=== PATIENT | female | born 1980 | race Caucasian/White ===

== ENCOUNTER 2019-01-13 11:24 | Inpatient (IN) ==
[2019-01-13] MEDS ORDERED: FENTANYL ONE (11:46)
[2019-01-13] MEDS ORDERED: DIPRIVAN 1% ONE (11:46)
[2019-01-13] MEDS ORDERED: VERSED ONE (11:48)
[2019-01-13] MEDS ORDERED: LR 1,000 ML ONE ×3 (11:51→13:17)
[2019-01-13] MEDS ORDERED: QUELICIN (DOSE) ONE (11:51)
[2019-01-13] MEDS ORDERED: SODIUM CHLORIDE 0.9% ONE (11:51)
[2019-01-13] MEDS ORDERED: SENSORCAINE 0.5%-EPI 1:200,000 ONE (11:51)
[2019-01-13] MEDS ORDERED: CLINDAMYCIN 900 MG/D5W 900 MG/50 ML IVPB ONE (12:04)
[2019-01-13] MEDS ORDERED: PEPCID ONE ×2 (12:04→12:29)
[2019-01-13] MEDS ORDERED: REGLAN ONE (12:04)
--- NOTE | 2019-01-13 12:37 | EKG Report ---
Test Performed on : 01/13/2019 12:28:55 PM Test Reason : tachycardia/preopt surgery Blood Pressure : / mmHG Vent. Rate : 169 BPM Atrial Rate : 163 BPM P-R Int : 000 ms QRS Dur : 070 ms QT Int : 246 ms P-R-T Axes : 000 102 -84 degrees QTc Int : 412 ms Atrial fibrillation. with rapid ventricular response. Rightward axis ST & T wave abnormality, consider inferior ischemia Abnormal ECG No previous ECGs available Confirmed by Fortino Sutton MD ([id number]) on 01/14/2019 12:59:59 PM
[2019-01-13 12:51] LABS: BASO# 0.04 X1000 (0.0-0.2); BASO% 0.6 % (0.0-0.8); EOS# 0.06 X1000 (0.0-0.7); EOS% 0.8 % (0.0-10.0); HEMATOCRIT 40.1 % (37.0-47.0); IMM GRAN# 0.02 X1000 (0.0-0.04); IMM GRAN% 0.3 % (0.0-0.5); LYMPH# 1.55 X1000 (1.2-3.4); LYMPH% 21.5 % (20.5-51.1); MCHC 32.4 g/dL (33-37); MCV 89.3 FL (81-99); MONO# 0.68 X1000 (0.11-0.59); MONO% 9.4 % (1.7-9.3); MPV 11.8 FL (7.4-10.4); NEUT# 4.85 X1000 (1.4-6.5); NEUT% 67.4 % (42.2-75.2); PLT 140 X1000 (130-400); RBC 4.49 XMIL (4.2-5.4)
[2019-01-13] MEDS ORDERED: LANOXIN IV ONE (12:53)
[2019-01-13] MEDS ORDERED: NS 1,000 ML IV ONE (12:54)
[2019-01-13] MEDS ORDERED: ZOFRAN ONE (13:02)
[2019-01-13] MEDS ORDERED: ZOFRAN IV PRN (13:04)
[2019-01-13] MEDS ORDERED: TYLENOL PO PRN (13:04)
[2019-01-13] MEDS ORDERED: NS 1,000 ML IV SCH (13:04)
--- NOTE | 2019-01-13 13:06 | Diag Imaging Result Doc PS360 ---
CHEST-PORTABLE - 01/13/2019 INDICATION: afib; sob COMPARISON: None FINDINGS: There is mild cardiomegaly. Pulmonary vascularity is top normal. Lung volumes are low. No infiltrates or edema. No large pleural effusion. IMPRESSION: Severely low lung volumes. Mild cardiomegaly. Electronically signed by Vamshi Quiroz 01/13/2019 1:03 PM
[2019-01-13 13:07] LABS: AGAP 15; ALB/GLOB RATIO 1.5; ALBUMIN 3.5 g/dL (3.5-5.0); ALKALINE PHOSPHATASE 41 U/L (32-104); BUN 26 mg/dL (8-22); CALCIUM 8.8 mg/dL (8.8-10.2); CHLORIDE 105 mmol/L (98-107); COSMO 284; ESTIMATED GFR > 60; GLUCOSE 131 mg/dL (70-104); GOT 34 U/L (10-30); GPT 19 U/L (10-36); POTASSIUM 4.4 mmol/L (3.5-5.1); SODIUM 139 mmol/L (136-145); TCO2 19 mmol/L (25-35); TOTAL BILIRUBIN 0.63 mg/dL (0.20-1.00); TOTAL PROTEIN 5.9 g/dL (6.3-8.3)
[2019-01-13] MEDS ORDERED: CARDIZEM IV ONE (13:58)
[2019-01-13] MEDS ORDERED: PHENERGAN IV PRN (13:58)
[2019-01-13] MEDS ORDERED: SODIUM CHLORIDE 0.9% INJ PRN (13:58)
[2019-01-13] MEDS ORDERED: SODIUM CHLORIDE 0.9% INJ ONE (13:59)
[2019-01-13] MEDS ORDERED: PHENERGAN IV ONE (13:59)
[2019-01-13 14:00] LABS: INR 1.16; PROTIME 14.9 Seconds (11.0-16.0)
[2019-01-13 14:01] LABS: PTT 27.7 Seconds (22.3-41.8)
[2019-01-13] MEDS ORDERED: PHENERGAN ONE (14:16)
[2019-01-13] MEDS ORDERED: CARDIZEM 100 MG/NS 100 MG/100 ML IVPB IV SCH (14:30)
[2019-01-13] MEDS ORDERED: LOVENOX 1 MG/KG SUBQ SCH (14:45)
[2019-01-13] MEDS ORDERED: PHENERGAN PO PRN (14:45)
[2019-01-13 14:59] LABS: FREE T4 1.12 ng/dL (0.93-1.70); TSH 5.14 uIUmL (0.27-4.20)
[2019-01-13] MEDS: LOVENOX SUBQ SCH (15:14)
--- NOTE | 2019-01-13 15:17 | HISTORY AND PHYSICAL ---
PRIMARY CARE PROVIDER: Dr. Dixon Thomas. CHIEF COMPLAINT: Reason for consulting us was due to preoperatively patient was found to be in atrial fibrillation with RVR. Rate 160s to 180s, which was new onset for her. HISTORY OF PRESENT ILLNESS: Ms. Sima Luis is a 38-year-old, female with a medical history of being mentally challenged. Education level really is unknown. She will talk some and nod a little bit to questions. She also has a history of arthritis, interstitial cystitis, hormone replacement therapy, depression, vitamin D deficiency, peripheral arterial diseases and currently has 2 small little ulcerations on the right miller. Now has atrial fibrillation with RVR. Blood pressure is somewhat stable after receiving IV fluids. What she was initially here for was to have an outpatient elective cholecystectomy with Dr. Mckinley. Probably a couple weeks ago, she started having issues where she was belching frequently, had a decreased appetite and developed some abdominal pain. Went to her primary care provider, who ordered an abdominal ultrasound which showed gallstones. This past Friday she went back to her primary care provider and got scheduled for outpatient surgery today with Dr. Mckinley. She also started developing projectile vomiting due to the nausea and abdominal pain. She said today she presented initially with a normal sinus rhythm, heart rate, but then prior to surgery developed atrial fibrillation with rapid ventricular response, rate anywhere from 140s to 180s. Blood pressure initially was hypotensive 80s up to as high as 100, but improved to 120s/130s after receiving 1 L of IV fluid bolus. There is no medical history, other than as a child she had mitral regurg, but there have been no more murmurs since she was young. Will send her to PVC step- down unit for closer observation, and she will either get amiodarone drip or Cardizem drip depending on what her D-dimer level is. If it is elevated, we will just do a Cardizem drip, and we will consult Cardiology. PAST MEDICAL HISTORY: 1. Arthritis. 2. Interstitial cystitis. 3. Hormone replacement therapy due to total hysterectomy. 4. Depression. 5. Vitamin D deficiency. 6. Seasonal allergies. 7. Peripheral arterial disease on aspirin. Gets frequent little sores on her shins or lower extremities due to the poor circulation. 8. Mitral regurgitation with a murmur as a child, but no murmur anymore. 9. Mentally challenged with learning disability. SURGICAL HISTORY: 1. Total hysterectomy. 2. Tonsillectomy, adenoidectomy. 3. Multiple tubes in her ears for hearing. 4. Dental surgery, including wisdom and other teeth extractions. SOCIAL HISTORY: No tobacco, alcohol or illicit drug use. She has a learning disability, is mentally challenged. Education level or understanding is unknown. Currently lives with her mom. Activities: She is in a day program during the day. She graduated [employer] developmental Program in the past. FAMILY HISTORY: Sister has thyroid dysfunction. Mother's side of family: The grandfather had prostate cancer and coronary artery disease in his 60s. The grandmother had a tumor behind 1 of her eyes that turned into cancer. She also had fibromyalgia and thyroid dysfunction as well. Father's side of the family: Her father of a pulmonary emboli; he was an alcoholic. The grandmother on that side had colon cancer and diabetes. ALLERGIES: Apparently there is an allergy to amoxicillin and also clavulanic acid. HOME MEDICATIONS: 1. Aspirin 81 mg p.o. daily. 2. Cymbalta 60 mg p.o. daily. 3. Ditropan 5 mg p.o. daily. 4. Estradiol 2 mg p.o. daily. 5. Mobic 15 mg p.o. daily. 6. Phenergan 25 mg p.o. every 6 hours p.r.n. 7. Prilosec 40 mg p.o. daily. 8. Singulair 10 mg p.o. daily. 9. Vitamin D 3 2000 units p.o. daily. 10. Zofran 8 mg p.o. every 4 hours p.r.n. REVIEW OF SYSTEMS: Patient nodded yes to nausea and no to pain, otherwise unable to get much information from her as far as review of systems. PHYSICAL EXAMINATION: VITAL SIGNS: Most recently documented at 12 noon: Temperature 97.6 degrees, heart rate, 141, respiratory rate 18, blood pressure 85/67, O2 saturation 95% on room air, but during evaluation her heart rate was 160s/180s and her blood pressure was 120s/ low 100s. GENERAL: Ms. Sima Luis is a 38-year-old female. She is in no acute distress. She will answer some questions with nodding yes or no. HEENT: Atraumatic, normocephalic. Pupils are reactive. Her right eye is a little bit dysconjugate with the left eye. Mucous membranes are dry. She keeps her mouth open. Her teeth protrude out. She has got a severe overbite. NECK: Trachea midline. CARDIOVASCULAR: Irregularly irregular. Tachycardic rate and rhythm. No rubs, gallops, or murmurs. No lower extremity edema. +1 dorsalis pedal pulses, +2 radial pulses. Negative for JVD or carotid bruits. PULMONARY: Mild expiratory wheezes noted on the left side. Tolerating room air. No accessory muscle use or work of breathing noted. GI: Soft, nontender, nondistended. Positive bowel sounds x4. EXTREMITIES: Moves all extremities equally in full range of motion. NEUROLOGIC: Verbally she was too shy to respond to my questions, but she would follow commands. Decreased sensory in the lower extremities. SKIN: Warm, dry and intact, except for right miller. There is almost like a little ulceration. LABORATORY DATA: White blood cells 7000, hemoglobin 13, hematocrit 40, platelet count 140. INR is 1.16. PTT is 27.7, D-dimer 3.94. Sodium 139, potassium 4.4, BUN 26, creatinine is 1.0, glucose 131, calcium 8.8, magnesium 1.5, bilirubin 0.63. AST 34, ALT 19, CK 48. Troponin less than 0.01. Albumin 3.5, lactate 2.2. IMAGING STUDIES: Chest x-ray: Severely low lung volumes. Mild cardiomegaly. EKG: Atrial fibrillation with RVR and rate 169. QTc 412. ASSESSMENT/PLAN: 1. New onset atrial fibrillation with rapid ventricular response. She has an elevated D-dimer, so will get her started on Cardizem just to control the rate, not necessarily to convert her. We will need to get her started on anticoagulation, and we will consult Cardiology. Will replace electrolytes as needed due to the dehydration from throwing up so much. She did get a liter of fluids. 2. Cholecystitis. She was preop for laparoscopic cholecystectomy by Dr. Mckinley when she actually went into atrial fibrillation, so that has currently been put on hold. Possibly surgery in the next couple of days if we can get her cardiac stabilized. 3. Peripheral arterial disease. Was on aspirin for that. She has 2 new little wounds on her right miller, and she has an elevated D-dimer. We are going to do ultrasound of the lower extremities, maybe due arterial and venous. 4. Expiratory wheezes upon auscultation. Denies any medical history of pulmonary disease, and she has an elevated D-dimer with new onset atrial fibrillation, so we will go ahead and get a computed tomography angiography of the lungs, and she is going to need to be started on anticoagulation. 5. Elevated D-dimer. We will complete that workup with a computed tomography angiography of the lungs and ultrasound of the venous lower extremities. 6. Hormone replacement therapy. May have to stop that since she has an elevated D-dimer and we need to make sure we get her ruled out on her D-dimer being elevated. We want to make sure there is no clot. 7. Depression. Continue Cymbalta. 8. History of interstitial cystitis. 9. History of seasonal allergies. Vitamin D deficiency and mitral regurgitation as a child, 10. Deep venous thrombosis prophylaxis. Again, we are going to get her started on something for anticoagulation. Dictated by BRAYDON Troncoso for Cesar Purcell MD cc: BRAYDON Troncoso MD Thomas E. Lockard, DO I agree with most components of history, physical, assessment and plan. A separate addendum has been dictated. FLAKO
[2019-01-13] MEDS: LOPRESSOR PO SCH ×2 (16:08→21:28)
[2019-01-13] MEDS: CARDIZEM 125 MG/D5W 125 MG/125 ML IVPB IV SCH ×2 (16:08→23:56)
--- NOTE | 2019-01-13 16:31 | CONSULTATION ---
DATE OF CONSULTATION: 01/13/2019 IMPRESSIONS: 1. Atrial fibrillation rapid ventricular rate. Duration of the patient's arrhythmias not clear. 2. Recent problems with low substernal and epigastric discomfort and nausea and vomiting with difficulty tolerating oral intake for the last few weeks. Abdominal ultrasound has indicated cholelithiasis. Cholecystectomy being considered. 3. Elevated D-dimer. Significance not clear. 4. Developmental delay/mentally challenged. RECOMMENDATIONS: 1. Control heart rate acutely with intravenous diltiazem and oral metoprolol. 2. Lovenox 1 mg/kg subcutaneously q.12. 3. Rule out DVT, PE. Venous Doppler study preliminarily shows no evidence of DVT. Agree with plans to pursue chest CT scan. 4. Intravenous hydration. 5. If atrial fibrillation persists, will consider pursuit of SKYLER cardioversion. 6. Follow-up transthoracic echocardiography result. HISTORY: This 38-year-old white female with a past history of developmental delay/mentally challenged was admitted with newly discovered atrial fibrillation with rapid ventricular rate. She has been sick for the last few weeks with epigastric discomfort intermittently, as well as some nausea and vomiting. She has had difficulty tolerating oral intake. She has been found to have cholelithiasis. She came in for preoperative evaluation and is discovered to be in atrial fibrillation with rapid ventricular rate. She presently denies any chest discomfort or dyspnea. However, she is not one to complain much at all according to family. She has occasionally been noted to have some wheezing. There is no knowledge of any previous cardiac issues. PAST MEDICAL HISTORY: 1. Developmental delay/mentally challenged. 2. Interstitial cystitis. 3. Depression. 4. Seasonal allergies. PAST SURGICAL HISTORY: Includes total hysterectomy, tonsillectomy, adenoidectomy, multiple tubes in her ears for congestion, and unspecified dental surgery. ALLERGIES: She is allergic or intolerant to amoxicillin/clavulanic acid. MEDICATIONS: Prior to admission as listed. SOCIAL HISTORY: She lives with her mother. She does not smoke or use alcohol. She is generally fairly active physically. FAMILY HISTORY: Noncontributory. REVIEW OF SYSTEMS: Pulmonary: Noncontributory beyond history of present illness. Gastrointestinal: Noncontributory beyond history of present illness. Constitutional: Noncontributory beyond history of present illness. Remainder of review of systems negative/noncontributory beyond history of present illness with 14 total systems reviewed. PHYSICAL EXAMINATION: General: Reveals a overweight, adult white female in no distress, on room air. Vital signs: Blood pressure 135/100. Heart rate 140 and irregular with ECG monitor showing atrial fibrillation with rapid ventricular rate. HEENT: Mucous membranes moist. Neck: Supple without jugular venous distention. There are no carotid bruits. Chest: Auscultation of the chest reveals faint wheezes diffusely. Cardiac Exam: Reveals an irregular tachycardia without appreciable murmur or gallop. Abdomen: Soft. Bowel sounds are normal. Extremities: Without edema. LABORATORY DATA: Includes a white blood cell count of 7.2, hematocrit 40.1, hemoglobin 13.0, platelet count 140,000. Sodium 139, potassium 4.4, chloride 105, carbon dioxide 19, BUN 26, creatinine 1.0, magnesium 1.5. Troponin T less than 0.01. D-dimer 3.94. cc: MD Cesar Krishnamurthy MD
[2019-01-13] MEDS ORDERED: ROCEPHIN 1 GM in NS 50 ML IV SCH (17:45)
--- NOTE | 2019-01-13 18:04 | HISTORY AND PHYSICAL ---
ADDENDUM: Addendum to History and Physical dictated by the nurse practitioner. I agree with most components of history, physical, assessment, and plan. 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 The patient's mother informs me that she has been having dry cough of about 3 weeks' duration. She also has had episodes of ulcers in her legs which have been an ongoing issue for many years for which she was recently prescribed ciprofloxacin 3 weeks ago, which did not help her cough. She denies any known history of atrial flutter. Her baseline status is alert. She engages in small conversation. She is able to play basketball, though she does have some balance issues PHYSICAL EXAMINATION: VITAL SIGNS: Currently vitals suggest temperature of 98.6 degrees, pulse of 130, blood pressure 130/100, saturating 91% on 2 L nasal cannula. GENERAL: She appears in mild distress and wheezing. HEENT: She has loosening of teeth. Dry oral cavity. LUNGS: Bilateral end-expiratory wheezes and some inspiratory crackles. The inspiratory effort is poor. CARDIOVASCULAR: S1, S2 is irregularly irregular. No murmur, rub, or gallop. ABDOMEN: Soft. There is no tenderness. EXTREMITIES: She does have mild bilateral lower extremity edema and there is an ulcer about 2 x 2 cm over the right anterior miller. NEUROLOGICAL: She is alert. She is following simple commands like opening mouth, shaking hands, and nonfocal. LABORATORY DATA: Suggestive of no leukocytosis, normal hemoglobin, normal platelet count. She does appear to have elevated BUN and creatinine and elevated proBNP. MICROBIOLOGICAL DATA: Blood cultures are in lab. ASSESSMENT AND PLAN: 1. Acute hypoxic respiratory failure due to acute pulmonary edema versus the right lower lobe Aspiration pneumonia (lung infiltrates in the setting of pneumonia). 2. Atrial fibrillation with rapid ventricular rate versus atrial flutter with variable atrioventricular block. 3. Cholecystolithiasis, pending elective cholecystectomy. 4. Chronic pain and arthritis. PLAN: Stop intravenous fluids. Start patient on intravenous antibiotics. Follow up with urine antigens. The patient's cough is dry. I will also get a CT scan angiography to rule out pulmonary embolism considering elevated D-dimer. That should also help me differentiate pulmonary edema versus infiltrate. I will continue diltiazem drip with therapeutic enoxaparin. In future, she may need cardioversion. Plan of care discussed with the patient's mother. All of her questions have been answered. I will start her on levalbuterol. cc: Cesar Purcell MD MTDD
[2019-01-13] MEDS: FLAGYL 500 MG/NS 500 MG/100 ML IVPB IV SCH (18:47)
[2019-01-13] MEDS: XOPENEX NEB INH SCH ×2 (20:16→23:48)
--- NOTE | 2019-01-13 20:58 | Extremity Venous Study ---
PROCEDURE NAME: Venous U/S Bilateral Legs - 01/13/2019 REFERRING PHYSICIAN: BRAYDON Troncoso INTERPRETING PHYSICIAN: Crow Sánchez MD HOME MAKER: [place]. INDICATIONS: The patient has pain and edema in the legs. FINDINGS: Bilateral lower extremity venous images accomplished. The common femoral, superficial femoral, deep femoral, popliteal, posterior tibial, peroneal, and greater saphenous veins are imaged bilaterally. All veins are compressible. No intraluminal clot is seen. INTERPRETATION: No evidence of deep or superficial venous thrombosis in either lower extremity in the veins identified. cc: MD Whitney Weaver CRNP Siddharth Patel, MD
--- NOTE | 2019-01-13 21:11 | VASCULAR LAB ---
DATE: 01/13/2019 PROCEDURE: Lower extremity arterial study. REFERRING PHYSICIAN: BRAYDON Troncoso INTERPRETING PHYSICIAN: Crow Sánchez MD. SALES ATTENDANT: Janet INDICATION: The patient is hypertensive and has ulcerations on the miller. The patient is in atrial fibrillation with a rapid ventricular response with a heart rate of about 150. Because of her heart rate, this exam is difficult to interpret. FINDINGS: Brachial pressure 155, right high thigh pressure 175, right low thigh pressure 191, right calf pressure 157, right dorsalis pedis 74, right posterior tibial 156 for a right AB index 1.0. The right great toe pressure 109 for a right total brachial index 0.70. The high thigh pressure on the left 204, left low thigh pressure 198, left calf 180, left dorsalis pedis 175, left posterior tibial 161, left AB index 1.1, left great toe pressure 93, left total brachial index 0.6. The PVRs are difficult to interpret due to the rapid rate. They seem to be diminished at the ankle and digit level. The pressures, however, are preserved. INTERPRETATION: In view of the fact that this patient is not diabetic and is relatively young, I would favor this as a reasonably normal study. I see no reason why there is not adequate flow to heal ulcers on the miller. cc: MD Whitney Weaver CRNP Siddharth Patel, MD MTDD
--- NOTE | 2019-01-13 21:16 | Diag Imaging Result Doc PS360 ---
EXAM: CT ANGIOGRM PULMONARY ARTERIES HISTORY: elevated ddimer; wheezing TECHNIQUE: CT chest with intravenous contrast. Pulmonary arterial protocol. MIP images obtained. COMPARISON: None. FINDINGS: Normal opacification of the pulmonary arteries and their branches. The heart is enlarged and the vessels aren't distended. No aortic aneurysm. Tiny left pleural effusion. Moderate sized right pleural effusion measuring 4.5 cm posteriorly and inferiorly in the midline. There are bilateral infiltrates as well as basilar atelectasis. Scattered calcified granuloma. IMPRESSION: 1.No pulmonary emboli 2.Cardiomegaly with pulmonary edema and pleural effusions 3.Bilateral infiltrates and atelectasis This exam was performed using automated exposure control, adjustment of mA or kV according to patient size, and/or use of iterative reconstruction technique. Electronically signed by Tony Phelan 01/13/2019 9:14 PM
[2019-01-13] MEDS ORDERED: LASIX IV ONE (21:28)
[2019-01-14] MEDS: LOPRESSOR PO SCH ×3 (02:37→12:51)
[2019-01-14] MEDS: FLAGYL 500 MG/NS 500 MG/100 ML IVPB IV SCH ×2 (02:37→09:46)
[2019-01-14] MEDS: LOVENOX SUBQ SCH ×2 (02:38→14:11)
[2019-01-14] MEDS: XOPENEX NEB INH SCH ×6 (03:20→23:30)
[2019-01-14 07:05] LABS: BASO# 0.03 X1000 (0.0-0.2); BASO% 0.6 % (0.0-0.8); EOS# 0.09 X1000 (0.0-0.7); EOS% 1.7 % (0.0-10.0); HEMATOCRIT 38.4 % (37.0-47.0); HEMOGLOBIN 12.6 g/dL (12.0-16.0); IMM GRAN# 0.02 X1000 (0.0-0.04); IMM GRAN% 0.4 % (0.0-0.5); LYMPH# 1.13 X1000 (1.2-3.4); LYMPH% 21.4 % (20.5-51.1); MCH 29.1 PG (27-31); MCHC 32.8 g/dL (33-37); MCV 88.7 FL (81-99); MONO# 0.46 X1000 (0.11-0.59); MONO% 8.7 % (1.7-9.3); MPV 11.4 FL (7.4-10.4); NEUT# 3.55 X1000 (1.4-6.5); NEUT% 67.2 % (42.2-75.2); PLT 105 X1000 (130-400); RBC 4.33 XMIL (4.2-5.4); RDW 13.9 % (11.5-14.5); WBC 5.28 X1000 (4.8-10.8)
--- NOTE | 2019-01-14 07:08 | EKG Report ---
Test Performed on : 01/14/2019 06:58:19 AM Test Reason : afib Blood Pressure : / mmHG Vent. Rate : 077 BPM Atrial Rate : 091 BPM P-R Int : 000 ms QRS Dur : 072 ms QT Int : 530 ms P-R-T Axes : 000 100 201 degrees QTc Int : 599 ms Atrial fibrillation. with premature ventricular or aberrantly conducted complexes. Rightward axis Nonspecific T wave abnormality Abnormal ECG When compared with ECG of 13-JAN-2019 12:28, (Unconfirmed) Vent. rate has decreased BY [address] no longer depressed in Inferior leads Confirmed by Fortino Sutton MD ([id number]) on 01/14/2019 1:00:41 PM
[2019-01-14 07:11] LABS: INR 1.2; PROTIME 15.4 Seconds (11.0-16.0)
[2019-01-14 07:16] LABS: PTT 42.3 Seconds (22.3-41.8)
[2019-01-14 07:35] LABS: AGAP 13; ALB/GLOB RATIO 1.6; ALBUMIN 3.4 g/dL (3.5-5.0); ALKALINE PHOSPHATASE 40 U/L (32-104); BUN 20 mg/dL (8-22); CALCIUM 8.2 mg/dL (8.8-10.2); CHLORIDE 102 mmol/L (98-107); COSMO 279; CREATININE 0.9 mg/dL (0.5-0.9); ESTIMATED GFR > 60; GLUCOSE 107 mg/dL (70-104); GOT 17 U/L (10-30); GPT 17 U/L (10-36); MAGNESIUM 1.3 mg/dL (1.5-2.7); POTASSIUM 3.1 mmol/L (3.5-5.1); SODIUM 138 mmol/L (136-145); TCO2 23 mmol/L (25-35); TOTAL BILIRUBIN 0.42 mg/dL (0.20-1.00); TOTAL PROTEIN 5.5 g/dL (6.3-8.3)
[2019-01-14] MEDS: SINGULAIR PO SCH (08:09)
[2019-01-14] MEDS: VITAMIN D PO SCH (08:09)
[2019-01-14] MEDS: CYMBALTA PO SCH (08:09)
[2019-01-14] MEDS: DITROPAN PO SCH (08:09)
[2019-01-14] MEDS: PRILOSEC PO SCH (08:09)
[2019-01-14] MEDS: ASPIRIN PO SCH (08:09)
[2019-01-14] MEDS ORDERED: LASIX IV ONE (08:22)
[2019-01-14] MEDS ORDERED: POTASSIUM CHLORIDE 20 MEQ/SWI 20 MEQ/100 ML IVPB IV ONE (08:30)
[2019-01-14] MEDS: NS NEB INH SCH ×3 (08:32→16:04)
--- NOTE | 2019-01-14 09:22 | PROGRESS NOTE ---
DATE: 01/14/2019 INTERVAL HISTORY: Yesterday her CT scan angiography did not detect any pulmonary embolism. She did have bilateral lung infiltrate. She was given intravenous Lasix at nighttime. SUBJECTIVE: She is feeling better. She still has intermittent episodes of wheezing and I discussed with her mother about outpatient evaluation for asthma. The patient does not appear in any acute distress currently. VITAL SIGNS: Currently vitals suggest temperature of 97.4 degrees, pulse 88, respiratory 15, blood pressure 120/82. She is saturating 92% on room air. PHYSICAL EXAMINATION: General: Obese not in any acute distress. HEENT: Oral cavity is dry. Missing teeth. Lungs: Inspiratory crackles suspicious, especially left infrascapular region, occasional wheeze. Cardiovascular: S1, S2 normal. Irregularly irregular heart rhythm. No murmur, rub, or gallop. Abdomen: Obese, soft, nontender. Extremity: No lower extremity edema. Neurologic: She is alert she is following simple commands like shaking hands, opening mouth. At baseline she does have mental retardation. LABS: Suggestive of no leukocytosis. Normal hemoglobin, normal platelet count. She does have a slight drop in platelet though from 140 to 105 without any occult bleeding. Hypokalemia which is being repleted. Hypomagnesemia which is currently being repleted. ASSESSMENT AND PLAN: 1. Acute hypoxic respiratory failure due to acute pulmonary edema versus aspiration pneumonia which is less likely. I will have speech therapy evaluation. I will stop antibiotic and give additional dose of intravenous Lasix. Follow up with echocardiogram. 2. Atrial fibrillation with rapid ventricular rate, new onset. Continue intravenous diltiazem, oral metoprolol as well as enoxaparin. Appreciate cardiology recommendation about need for chemical versus electrical cardioversion. 3. Cholecystolithiasis with likely chronic cholecystitis pending elective cholecystectomy. Surgery on board. 4. Chronic pain and arthritis. I will continue her home medications of duloxetine, vitamin D. DISPOSITION: I will continue to monitor patient in PVC unit. Plan of care discussed with the patient's mother. All of her questions been answered. cc: Cesar Purcell MD [facility] CENTERSreedhar
[2019-01-14] MEDS: KLOR-CON PO SCH ×2 (09:45→12:51)
[2019-01-14] MEDS: MAGNESIUM SULFATE 2 GM/S.W.I. 2 GM/50 ML IVPB IV SCH ×2 (09:45→12:51)
[2019-01-14] MEDS: CARDIZEM 125 MG/D5W 125 MG/125 ML IVPB IV SCH (11:37)
[2019-01-14] MEDS: BETAPACE PO SCH ×2 (13:34→20:55)
[2019-01-14] MEDS ORDERED: KLOR-CON PO ONE (13:45)
--- NOTE | 2019-01-14 13:53 | GENERAL SURGERY PROGRESS NOTE ---
DATE: 01/14/2019 SUBJECTIVE: Rate is better controlled overnight but remains in atrial fibrillation. She is on a diltiazem drip. No fevers. No tachycardia. No vomiting. No abdominal pain. Tolerating some clear liquids. She has had some wheezing. She is on 2 to 4 L nasal cannula and maintain saturations in the high 90s. She had a CT angiogram that was negative for pulmonary embolus. PHYSICAL EXAMINATION: On examination, she is alert. Cardiovascular: Irregular rhythm but rate controlled in the 90s. Abdomen: Soft, nontender. Integument: Warm and dry without jaundice. LABORATORY DATA: White count is normal. Hematocrit is 38. Her creatinine is 0.9. Bilirubin is normal. AST, ALT, and alkaline phosphatase are normal. Troponins are negative. Magnesium was low at 1.3. Potassium was low at 3.1. ASSESSMENT AND PLAN: This is a 38-year-old female who presented for outpatient cholecystectomy but was found to be in atrial fibrillation with rapid ventricular response. It is better but there are tentative plans for cardioversion. Her electrolytes are being repleted by the hospitalist service. We will follow along, plan for cholecystectomy once stable from a cardiology standpoint. cc: MD Cesar Quiñonez MD
--- NOTE | 2019-01-14 14:01 | PROGRESS NOTE ---
DATE: 01/14/2019 SUBJECTIVE: Patient continues asymptomatic from a cardiovascular standpoint. She remains in atrial fibrillation now with heart rate better controlled. OBJECTIVE: Blood pressure 100/80, heart rate 92 and irregular with ECG monitor showing atrial fibrillation. There is no significant jugular distention.Chest: Clear to auscultation. Cardiac: Exam reveals an irregular rate and rhythm without appreciable murmur or gallop. There is no evidence of peripheral edema. LABORATORY DATA: Includes white blood cell count of 5.28, hematocrit 38.4, hemoglobin 12.6, and platelet count of 105,000. Sodium 138, potassium 3.1, chloride 102, carbon dioxide 23, BUN 20 and creatinine 0.9. Echocardiography pending. IMPRESSION: 1. Atrial fibrillation of unknown duration. Heart rate better controlled. 2. Abnormal D-dimer. Chest CT scan negative and venous Doppler study negative. 3. Recent problems with low substernal/epigastric discomfort as well as nausea and vomiting with difficulty tolerating oral intake the last few weeks. Abdominal ultrasound as indicated. Cholelithiasis. Cholecystectomy being considered. 4. Developmental delay/mentally challenged. RECOMMENDATIONS: 1. Continue current rate control measures. 2. Continue Lovenox 1 mg/kg subcutaneously q.12. 3. Echocardiography now that heart rate is better controlled. 4. Initiate sotalol and withdrawal Lopressor in effort to restore sinus rhythm. 5. If atrial fibrillation persists, consider SKYLER cardioversion tomorrow. This was discussed with the family. cc: MD Cesar Krishnamurthy MD
[2019-01-15] MEDS: CARDIZEM 125 MG/D5W 125 MG/125 ML IVPB IV SCH ×2 (02:09→20:32)
[2019-01-15] MEDS: LOVENOX SUBQ SCH ×2 (02:10→14:14)
[2019-01-15] MEDS: XOPENEX NEB INH SCH ×6 (04:46→23:33)
[2019-01-15] MEDS: BETAPACE PO SCH ×2 (05:27→09:00)
--- NOTE | 2019-01-15 07:42 | EKG Report ---
Test Performed on : 01/15/2019 06:34:41 AM Test Reason : afib Blood Pressure : / mmHG Vent. Rate : 089 BPM Atrial Rate : 357 BPM P-R Int : 000 ms QRS Dur : 074 ms QT Int : 384 ms P-R-T Axes : 000 086 080 degrees QTc Int : 467 ms Atrial fibrillation. Nonspecific T wave abnormality Abnormal ECG When compared with ECG of 14-JAN-2019 06:58, Non-specific change in ST segment in Inferior leads Nonspecific T wave abnormality no longer evident in Anterior leads QT has shortened Confirmed by Fortino Sutton MD ([id number]) on 01/15/2019 4:28:36 PM
[2019-01-15] MEDS: NS NEB INH SCH ×3 (08:38→16:13)
--- NOTE | 2019-01-15 08:44 | ECHO REPORT ---
ORDER DATE: 01/13/2019 ECHOCARDIOGRAPHIC MEASUREMENTS: 1. Septal thickness 1.1. 2. Left ventricular internal diameter diastole 4.2. 3. Posterior wall thickness 1.1. 4. Left ventricular internal diameter in systole 3.6. 5. Aortic root 3.2. SUMMARY: 1. Technically difficult study due to limited acoustic window quality. 2. Aortic valve is without evidence of structural abnormality. Aortic valve appears to open adequately on 2-dimensional images. Mitral valve is abnormal with restricted mitral leaflet separation. The posterior mitral leaflet is thickened with reduced mobility. There is mild doming of anterior mitral leaflet. Doppler demonstrates the peak gradient across the mitral valve of 15 mmHg with a mean gradient of 7 mmHg. Calculated mitral valve area by pressure halftime method is 1.1 cm2. Tricuspid and pulmonic valves are without evidence of structural abnormality. There is mild tricuspid regurgitation and mild pulmonic insufficiency. The estimated systolic PA pressure by Doppler is 45 to 50 mmHg suggesting mild pulmonary hypertension. The aortic root is normal in size. 3. Normal left ventricular dimensions suggested. Estimated left ventricular ejection fraction appears to be mildly reduced, but appears to be approximately 45%. No focal wall motion abnormality can be appreciated. Left atrium is moderately enlarged on 2- dimensional images. Right atrium and right ventricle are grossly normal in size. 4. No pericardial effusion. 5. Inferior vena cava not well demonstrated. CONCLUSIONS: 1. Technically difficult study. 2. Abnormal mitral valve with restricted mitral leaflet separation, thickening of posterior mitral leaflet with reduced posterior mitral mobility, mild doming of anterior mitral leaflet, and Doppler suggesting moderate to severe mitral stenosis. 3. Mild tricuspid regurgitation with mild pulmonary hypertension by Doppler. 4. Estimated left ventricular ejection fraction at least 45%. 5. Moderate left atrial enlargement. cc: MD Whitney Krishnamurthy CRNP Siddharth Patel, MD [facility]
[2019-01-15] MEDS ORDERED: XYLOCAINE-MPF 2% ONE ×2 (08:45→10:05)
[2019-01-15] MEDS ORDERED: DIPRIVAN 1% ONE (08:45)
[2019-01-15] MEDS ORDERED: CLAVE TWINSITE 32 IN 11959 ONE (09:10)
[2019-01-15] MEDS ORDERED: AMIDATE ONE (10:05)
--- NOTE | 2019-01-15 11:10 | GENERAL SURGERY PROGRESS NOTE ---
DATE: 01/15/2019 SUBJECTIVE: Going for cardioversion today. No abdominal pain. She is tolerating some clear liquids. No fevers. Heart rate has been controlled but she remains in atrial fibrillation. Blood pressures have been low at 100s systolic. Oxygen saturations mid 90s on 2 L. OBJECTIVE: General: She is alert. Abdomen: Soft. Integumentary: Warm and dry. LABORATORY DATA: Reviewed her labs. Nothing new today. ASSESSMENT AND PLAN: This is a 38-year-old female who presented for elective cholecystectomy, but found to be in atrial fibrillation with rapid ventricular response. She is going for cardioversion today when cleared from a medical cardiology standpoint. We will plan for cholecystectomy. Dr. Orozco is president/[employer] & live experiences this weekend. cc: MD Cesar Quiñonez MD
[2019-01-15] MEDS: VITAMIN D PO SCH (11:29)
[2019-01-15] MEDS: SINGULAIR PO SCH (11:29)
[2019-01-15] MEDS: ASPIRIN PO SCH (11:29)
[2019-01-15] MEDS: CYMBALTA PO SCH (11:29)
[2019-01-15] MEDS: PRILOSEC PO SCH (11:29)
[2019-01-15] MEDS: DITROPAN PO SCH (11:29)
[2019-01-15 13:13] LABS: AGAP 9; BUN 14 mg/dL (8-22); CALCIUM 8.3 mg/dL (8.8-10.2); CHLORIDE 104 mmol/L (98-107); COSMO 272; CREATININE 0.8 mg/dL (0.5-0.9); ESTIMATED GFR > 60; GLUCOSE 133 mg/dL (70-104); MAGNESIUM 2.1 mg/dL (1.5-2.7); POTASSIUM 4.1 mmol/L (3.5-5.1); SODIUM 135 mmol/L (136-145); TCO2 22 mmol/L (25-35)
--- NOTE | 2019-01-15 15:15 | Transesophageal Echocardiogram ---
DATE: 01/15/2019 INDICATION: Atrial fibrillation. Evaluate for cardioversion. PROCEDURE IN DETAIL: Ms Luis was brought to the catheterization laboratory in fasting state. Prepped in the usual fashion. She was anesthetized with etomidate via Anesthesiology. After appropriate sedation, the SKYLER probe was passed without difficulty. Images obtained in multiple views. No apparent complications throughout the course of the procedure. FINDINGS: 1. The right atrium appears normal in size. There is no evidence of shunting across the interatrial septum via injection of agitated saline contrast as well as with color Doppler. 2. Trace to mild tricuspid regurgitation. 3. Limited visualization of the right ventricle, but overall appears to have normal size and possible mild reduction in systolic function. 4. Mild pulmonic insufficiency. 5. There is a marked enlargement of the her left atrium. There is a prominent thrombus identified in the left atrial appendage. There is prominent smoke seen in the left atrial appendage consistent with a low-flow state. 6. There is no evidence mitral valve prolapse. There is restriction in motion of the mitral leaflet with flow acceleration into the left ventricle suggestive of mitral stenosis. In addition, there is a hockey-stick type appearance of the valve on opening. Previous transthoracic echo would suggest moderate to severe mitral stenosis. I was unable to get an accurate planimetry of the valve. Mild mitral regurgitation. 7. The left ventricle appeared to have normal LV systolic function. Off-axis views of the left ventricle or obtained. 8. Aortic valve was difficult to visualize but opens well with no evidence of stenosis or insufficiency. 9. There is mild atherosclerosis in the descending thoracic aorta. 10. No pericardial effusion identified. cc: MD Lesley Fabian PA Siddharth Patel, MD MTDD
--- NOTE | 2019-01-15 15:22 | PROGRESS NOTE ---
DATE: 01/15/2019 INTERVAL HISTORY: She underwent transesophageal echocardiogram for possible cardioversion today, since yesterday she received 4 doses of Sotalol which did not revert her heart rhythm back to normal. Unfortunately, on transesophageal echocardiogram, she was detected to have a left atrial thrombus, though the formal report is pending, and so the procedure was aborted. Currently, she is lying down in the bed. Denies any complaints. She continues to have intermittent wheezing. Has not had any nausea or vomiting. OBJECTIVE: Vitals: Currently, temperature of 98 degrees, pulse 75, respiratory rate 14, blood pressure 120/64, she is saturating 100% 2 L nasal cannula. General: Obese, not in any acute distress. Oral cavity has missing teeth. Air entry bilaterally equal. No wheeze, rhonchi, crackles. Cardiovascular: S1, S2 normal. Irregularly irregular. No murmur, rub, or gallop. Abdomen is soft. Mild tenderness in right upper quadrant without any guarding, rebound or rigidity. Active bowel sounds. No lower extremity edema. She is alert, following commands like shaking hands, opening mouth. At baseline, she does have mental retardation. DIAGNOSTIC STUDIES: No CBC today. BMP is essentially unremarkable with normal kidney function and magnesium. ASSESSMENT AND PLAN: 1. Acute hypoxic respiratory failure due to acute pulmonary edema likely because of atrial fibrillation status post intravenous Lasix. now resolved. Continue oxygenation. Echocardiogram had EF of 45%, mild pulmonary hypertension, moderate left atrial enlargement, and moderate to severe mitral stenosis. Her procalcitonin and urine antigen were unremarkable, and antibiotics have been stopped as suspicion of aspiration pneumonia is extremely low. 2. Atrial fibrillation with rapid ventricular rate. Continue intravenous diltiazem, enoxaparin, and transition to oral rate-control medication as tolerated. I will appreciate Cardiology recommendation about short-term anticoagulation plan, considering her possible need for surgery. 3. Cholecystolithiasis with likely chronic cholecystitis. I had a discussion with surgical team, and patient did have symptoms of profound volume depletion, nausea, vomiting, abdominal pain for which she was to go elective cholecystectomy. I will continue her on liquid diet and see how she does over the weekend. If her symptoms recur, then after discussion with Cardiology, we could consider switching her enoxaparin to probably heparin drip while awaiting definitive cholecystectomy early next week. 4. History of Ruiz syndrome, mental retardation, chronic pain, and arthritis. Continue home aspirin, duloxetine. 5. Others: Continue levalbuterol inhalers as needed for shortness of breath. DISPOSITION: I will continue to monitor the patient in [facility]. Plan of care discussed with the patient and her mother at bedside. All their questions have been answered. cc: Cesar Purcell MD MTDD
--- NOTE | 2019-01-15 15:49 | PROGRESS NOTE ---
DATE: 01/15/2019 SUBJECTIVE: The patient continues asymptomatic from a cardiovascular standpoint. She continues in atrial fibrillation with controlled rate. Transesophageal echocardiography this morning demonstrated mitral stenosis, severe left atrial enlargement, and left atrial appendage thrombus. Cardioversion not pursued. OBJECTIVE: Vital signs: Blood pressure 115/64, heart rate 75 and irregular, oxygen saturation 100% on nasal cannula oxygen at 2 L per minute. Neck: There is no significant jugular venous distention. Chest: Clear to auscultation. Heart: Exam reveals an irregular rate and rhythm without appreciable murmur or gallop. There is no evidence of peripheral edema. LABORATORY DATA: Includes sodium 135, potassium 4.1, chloride 104, carbon dioxide 22, BUN 14, creatinine 0.8, glucose 133. IMPRESSION: 1. Atrial fibrillation. Rate controlled. Cardioversion on pursued due to left atrial appendage thrombus. 2. 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 3. Cholelithiasis. 4. Developmental delay/mentally challenged. RECOMMENDATIONS: 1. For now, will manage with rate control and anticoagulation Will discontinue sotalol, initiate metoprolol 50 mg p.o. b.i.d. and switch from Lovenox to Eliquis. 2. Patient's condition and SKYLER findings discussed with the patient's family as well as treatment plan. cc: MD Cesar Krishnamurthy MD MTDD
[2019-01-15] MEDS: LOPRESSOR PO SCH (20:32)
[2019-01-15] MEDS: ELIQUIS PO SCH (20:32)
[2019-01-16] MEDS: XOPENEX NEB INH SCH ×6 (04:29→23:45)
--- NOTE | 2019-01-16 06:52 | EKG Report ---
Test Performed on : 01/16/2019 06:42:39 AM Test Reason : afib Blood Pressure : / mmHG Vent. Rate : 090 BPM Atrial Rate : 090 BPM P-R Int : 154 ms QRS Dur : 072 ms QT Int : 348 ms P-R-T Axes : 073 083 -30 degrees QTc Int : 425 ms atrial flutter Possible Anterior infarct , age undetermined Abnormal ECG When compared with ECG of 15-JAN-2019 06:34, Sinus rhythm. has replaced Atrial fibrillation. Nonspecific T wave abnormality now evident in Anterior leads Confirmed by Herman SALMON, Fortino Underwood ([id number]) on 01/19/2019 12:04:42 PM
[2019-01-16 07:19] LABS: BASO# 0.02 X1000 (0.0-0.2); BASO% 0.4 % (0.0-0.8); EOS# 0.21 X1000 (0.0-0.7); EOS% 3.8 % (0.0-10.0); HEMATOCRIT 40.9 % (37.0-47.0); HEMOGLOBIN 13.1 g/dL (12.0-16.0); LYMPH# 1.01 X1000 (1.2-3.4); LYMPH% 18.2 % (20.5-51.1); MCH 28.9 PG (27-31); MCV 90.1 FL (81-99); MONO# 0.55 X1000 (0.11-0.59); MONO% 9.9 % (1.7-9.3); MPV 11.1 FL (7.4-10.4); NEUT# 3.75 X1000 (1.4-6.5); NEUT% 67.7 % (42.2-75.2); PLT 112 X1000 (130-400); RBC 4.54 XMIL (4.2-5.4); RDW 14.1 % (11.5-14.5); WBC 5.54 X1000 (4.8-10.8)
[2019-01-16 07:33] LABS: AGAP 6; BUN 12 mg/dL (8-22); CALCIUM 8.1 mg/dL (8.8-10.2); CHLORIDE 103 mmol/L (98-107); COSMO 274; CREATININE 0.8 mg/dL (0.5-0.9); ESTIMATED GFR > 60; GLUCOSE 106 mg/dL (70-104); POTASSIUM 4.4 mmol/L (3.5-5.1); SODIUM 137 mmol/L (136-145); TCO2 28 mmol/L (25-35)
[2019-01-16] MEDS: NS NEB INH SCH ×2 (07:40→11:17)
[2019-01-16] MEDS: ELIQUIS PO SCH ×2 (08:43→20:43)
[2019-01-16] MEDS: LOPRESSOR PO SCH ×2 (08:43→20:43)
[2019-01-16] MEDS: VITAMIN D PO SCH (08:43)
[2019-01-16] MEDS: SINGULAIR PO SCH (08:43)
[2019-01-16] MEDS: PRILOSEC PO SCH (08:43)
[2019-01-16] MEDS: ASPIRIN PO SCH (08:43)
[2019-01-16] MEDS: DITROPAN PO SCH (08:43)
[2019-01-16] MEDS: CYMBALTA PO SCH (08:43)
--- NOTE | 2019-01-16 09:53 | PROGRESS NOTE ---
DATE: 01/16/2019 INTERVAL HISTORY: No acute events overnight. She was started on oral metoprolol as well as Eliquis. She has been tolerating it well so far. She continues to remain in atrial fibrillation. She has been tolerating diet without any nausea, vomiting, or abdominal pain. CURRENT VITAL SIGNS: Temperature 97.8 degrees, pulse 88, respiratory rate 18, blood pressure 105/69, saturating 96% on room air. PHYSICAL EXAMINATION: General: She does not appear in any acute distress. Oral cavity is moist. Air entry bilaterally equal. No wheeze, rhonchi, or crackles. S1, S2 normal. Irregularly irregular. No murmur, rub, or gallop. Abdomen: Obese, soft, nontender. Mild lower extremity edema. She is alert, following simple commands like shaking hands, opening mouth. LABS: Suggestive of no leukocytosis. Platelets of 112,000. Normal electrolytes. Microbiology, no data. IMAGING: Extremity arterial study had normal ankle-brachial indexes. Pulmonary arteriogram did not have pulmonary emboli. She did have cardiomegaly with pulmonary edema and pleural effusions. Transesophageal echocardiogram yesterday had large left atrial thrombus and mitral valve stenosis. ASSESSMENT AND PLAN: 1. Acute hypoxic respiratory failure due to acute pulmonary edema due to atrial fibrillation requiring intravenous Lasix, now resolved. 2. Atrial fibrillation with rapid ventricular rate and LA thrombus. Continue metoprolol and Eliquis as per Cardiology recommendation. Will slowly titrate intravenous diltiazem down as tolerated to keep heart rate less than 100 to 110. I will appreciate Cardiology recommendation. 3. Mitral stenosis, moderate to severe with left ventricular systolic dysfunction of ejection fraction of 45% and left atrial enlargement. Continue to monitor. She may need outpatient follow-up for mitral valve replacement. Cardiology recommends Eliqius for now. 4. Cholecystolithiasis with likely chronic cholecystitis. Currently tolerating diet well. If possible, the plan is to defer cholecystectomy at least 4 weeks and perform elective cholecystectomy then. However, if she starts becoming symptomatic, then the plan could be to resume her on IV heparin drip and perform cholecystectomy as per my discussion with the Surgery team. I will appreciate Cardiology recommendation. 5. History of Ruiz syndrome, mental retardation, chronic pain and arthritis. Continue home aspirin, duloxetine, and inhalers as needed for shortness of breath. 6. Disposition. Continue to monitor patient in telemetry unit. Plan of care discussed with the patient and her mother at bedside. Their questions have been answered. cc: Cesar Purcell MD MTDD
--- NOTE | 2019-01-16 14:41 | GENERAL SURGERY PROGRESS NOTE ---
DATE: 01/16/2019 SUBJECTIVE: The patient denies abdominal pain, nausea, or vomiting. She is eating food without any trouble. OBJECTIVE: Vital signs: She is afebrile. Vital signs are stable. General: She is awake and alert, in no acute distress. Gastrointestinal: Soft, minimally tender in the upper abdomen. No rebound or guarding. LABORATORY DATA: White blood cell count 5. Electrolytes reviewed, unremarkable. ASSESSMENT AND PLAN: A 38-year-old female with symptomatic cholelithiasis. Elective cholecystectomy is being delayed at this time as her symptoms have improved and she has developed atrial fibrillation and left atrial thrombus. We will allow the cardiac issues to be stabilized and delay the cholecystectomy at this time. cc: MD Cesar Moyer MD
[2019-01-16] MEDS ORDERED: LANOXIN IV ONE (15:05)
--- NOTE | 2019-01-16 15:27 | PROGRESS NOTE ---
DATE: 01/16/2019 SUBJECTIVE: Patient continues without shortness of breath or chest discomfort on room air. She is still on intravenous Cardizem drip. OBJECTIVE: Vital Signs: Blood pressure 112/74, heart rate 78 with ECG monitor showing atrial fibrillation. Oxygen saturation 98% on room air. There is no significant jugular venous distention. Chest: Clear to auscultation bilaterally. Cardiac: Reveals a irregular rate and rhythm without appreciable murmur or gallop. There is no evidence of peripheral edema. LABORATORY DATA: Includes a white blood cell count of 5.54, hematocrit 40.9, hemoglobin 13.1, platelet count 112,000. Sodium 137, potassium 4.4, chloride 103, carbon dioxide 28, BUN 12, creatinine 0.8. Glucose 106. IMPRESSION: 1. Atrial fibrillation. Heart rate controlled. Cardioversion not pursued due to left atrial appendage thrombus. Likelihood of restoring sinus rhythm low given severe left atrial enlargement. Favor management with rate control and anticoagulation. 2. 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 3. Cholelithiasis. 4. Developmental delay/mentally challenged. RECOMMENDATIONS: 1. Discontinue IV diltiazem. 2. Start digoxin. 3. Continue anticoagulation. Eliquis chosen for anticoagulation given constellation of patient's problems and being mentally challenged. Anticoagulation with Eliquis likely to be more feasible given that she would not need frequent blood draws or dietary restrictions neither which she is likely to understand. 4. Plans to not pursue cholecystectomy at this time noted. This certainly most reasonable. Should she ultimately need cholecystectomy, probably best to bridge her with heparin or Lovenox. 5. Endocarditis prophylaxis. Measures discussed with patient's mother. cc: MD Cesar Krishnamurthy MD
[2019-01-17] MEDS: XOPENEX NEB INH SCH ×7 (03:43→23:33)
[2019-01-17] MEDS: PRILOSEC PO SCH ×2 (05:52→06:06)
[2019-01-17] MEDS: NS NEB INH SCH ×3 (07:51→15:07)
[2019-01-17] MEDS: CYMBALTA PO SCH (08:08)
[2019-01-17] MEDS: ELIQUIS PO SCH ×2 (08:08→21:22)
[2019-01-17] MEDS: LANOXIN PO SCH (08:08)
[2019-01-17] MEDS: SINGULAIR PO SCH (08:08)
[2019-01-17] MEDS: VITAMIN D PO SCH (08:08)
[2019-01-17] MEDS: LOPRESSOR PO SCH ×2 (08:08→21:22)
[2019-01-17] MEDS: DITROPAN PO SCH (08:08)
--- NOTE | 2019-01-17 10:07 | GENERAL SURGERY PROGRESS NOTE ---
DATE: 01/17/2019 SUBJECTIVE: The patient complains of some chest pain this morning. Otherwise, she seemed to tolerate her food yesterday and denies abdominal pain or nausea. OBJECTIVE: Vital signs: She is afebrile. Vital signs are stable. GI: Soft, nontender, nondistended. Respiratory: No increased work of breathing. LABORATORY: None today. ASSESSMENT AND PLAN: A 38-year-old female with known left atrial thrombus and recent atrial fibrillation with rapid ventricular response and symptomatic cholelithiasis. We are deferring the cholecystectomy at this time given the cardiac concerns. cc: MD Cesar Moyer MD
--- NOTE | 2019-01-17 11:34 | PROGRESS NOTE ---
DATE: 01/17/2019 INTERVAL HISTORY: Ms. Luis was complaining of some epigastric/chest discomfort in the morning time and was burping so EKG was performed which had suggested atrial fibrillation. She did not feel well in the morning time and she was very pale. She had episodes of wheezing for which levalbuterol nebulization was given. According to mother, she is concerned that she is not feeling as well and she was on yesterday. The patient was asleep and I aroused her. Then she became alert. VITALS: Currently, temperature 97.7 degrees, pulse of 83, respiratory rate 18, blood pressure is 129/80, saturating 98% on room air. PHYSICAL EXAMINATION: She does not appear in any acute distress. Oral cavity is moist. Lungs: Air entry bilaterally equal. No wheeze, rhonchi, or crackles. Cardiovascular: S1, S2. Irregularly irregular. No appreciable murmur, rub, or gallop because of irregular rhythm. Abdomen: Soft, nontender. She does have hematoma because of enoxaparin injections in the subcutaneous region. No lower extremity edema. She does have outwardly projecting teeth. I had discussion with the patient's mother about infective endocarditis, dental care, Coumadin versus Eliquis, and answered all of her questions. LABS: Currently, no CBC or BMP today. ASSESSMENT AND PLAN: 1. Atrial fibrillation with rapid ventricular rate and left atrial thrombus. Continue metoprolol, digoxin, and Eliquis as per cardiology recommendations. 2. Moderate to severe mitral stenosis with left ventricular systolic ejection fraction of 45% and left atrial enlargement. Continue to monitor. Cardiology team on board for future discussion about mitral valve replacement. 3. Cholecystolithiasis with chronic cholecystitis. Currently, she is tolerating her diet well and does not have any right upper quadrant tenderness on examination. She does have burping though. Surgical team has deferred further plans of elective cholecystectomy until her cardiovascular issues are stable. 4. Her acute hypoxic respiratory failure and acute pulmonary edema due to atrial fibrillation have resolved after intravenous Lasix use; I will continue home aspirin, duloxetine for chronic pain and arthritis; she does have history of Ruiz syndrome, mental retardation; continue antireflux precautions for intermittent wheezing with levalbuterol inhaler. 5. Disposition. I will monitor patient inside cardiac telemetry unit for another 24 hours considering she felt unwell today and if her heart rate is well controlled and she does not have recurrence of cholecystitis related symptoms, I would anticipate discharge in next 24 to 48 hours. Plan of care discussed with mother. Her questions have been answered. cc: Cesar Purcell MD MTDD
[2019-01-17] MEDS ORDERED: LANOXIN IV ONE (14:28)
--- NOTE | 2019-01-17 14:35 | EKG Report ---
Test Performed on : 01/17/2019 08:08:33 AM Test Reason : chest pain Blood Pressure : / mmHG Vent. Rate : 099 BPM Atrial Rate : 375 BPM P-R Int : 000 ms QRS Dur : 066 ms QT Int : 330 ms P-R-T Axes : 000 088 250 degrees QTc Int : 423 ms Atrial fibrillation. with a competing junctional pacemaker. with premature ventricular or aberrantly conducted complexes. ST & T wave abnormality, consider inferior ischemia Abnormal ECG When compared with ECG of 17-JAN-2019 06:09, (Unconfirmed) Nonspecific T wave abnormality no longer evident in Anterior leads Confirmed by Fortino Sutton MD ([id number]) on 01/19/2019 12:06:00 PM
--- NOTE | 2019-01-17 14:40 | EKG Report ---
Test Performed on : 01/17/2019 06:09:42 AM Test Reason : afib Blood Pressure : / mmHG Vent. Rate : 105 BPM Atrial Rate : 117 BPM P-R Int : 000 ms QRS Dur : 068 ms QT Int : 292 ms P-R-T Axes : 000 091 203 degrees QTc Int : 385 ms Atrial fibrillation. with rapid ventricular response. with premature ventricular or aberrantly conduc linsey complexes. Rightward axis ST & T wave abnormality, consider inferior ischemia Abnormal ECG When compared with ECG of 16-JAN-2019 06:42, (Unconfirmed) Atrial fibrillation. has replaced Sinus rhythm. Nonspecific T wave abnormality, worse in Lateral leads Confirmed by Herman SALMON, MVikash Underwood ([id number]) on 01/19/2019 12:05:51 PM
--- NOTE | 2019-01-17 14:46 | PROGRESS NOTE ---
DATE: 01/17/2019 SUBJECTIVE: Patient reports feeling fine. She never really complains. She denies shortness of breath. OBJECTIVE: Blood pressure 111/57, heart rate 100 to 125 and irregular with ECG monitor showing atrial fibrillation. At present she is at 120 beats per minute. There is no significant jugular venous distention.Chest: Clear to auscultation. Cardiac Exam: Reveals an irregular rate and rhythm without appreciable murmur or gallop. Extremities: Without edema. LABORATORY DATA: Includes a white blood cell count of 5.54, hematocrit 40.9, hemoglobin 13.1, platelet count 112,000. Sodium 137, potassium 4.4, chloride 103, carbon dioxide 28, BUN 12, creatinine 0.8. Glucose 106. IMPRESSION: 1. Atrial fibrillation. Heart rate mild to moderately elevated despite current regimen. 2. Left atrial appendage thrombus. 3. 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 4. Cholelithiasis. 5. Developmental delay/mentally challenged. RECOMMENDATIONS: 1. Give additional IV digoxin. 2. Continue metoprolol 50 mg p.o. b.i.d. and digoxin 0.125 mg p.o. daily. 3. Check digoxin level in a.m. 4. Continue anticoagulation with Eliquis. 5. Hopefully heart rate will be adequate control such that she could be discharged tomorrow. cc: MD Cesar Krishnamurthy MD
[2019-01-17] MEDS ORDERED: LANOXIN ONE (15:25)
[2019-01-17] MEDS ORDERED: PEPCID PO SCH (21:00)
[2019-01-18] MEDS: XOPENEX NEB INH SCH ×4 (03:53→15:48)
[2019-01-18] MEDS: PRILOSEC PO SCH ×2 (05:52→06:01)
[2019-01-18 07:21] LABS: BASO# 0.01 X1000 (0.0-0.2); BASO% 0.2 % (0.0-0.8); EOS# 0.19 X1000 (0.0-0.7); EOS% 3.2 % (0.0-10.0); HEMATOCRIT 42.2 % (37.0-47.0); HEMOGLOBIN 13.6 g/dL (12.0-16.0); LYMPH# 0.94 X1000 (1.2-3.4); LYMPH% 16.1 % (20.5-51.1); MCH 28.8 PG (27-31); MCHC 32.2 g/dL (33-37); MCV 89.4 FL (81-99); MONO# 0.55 X1000 (0.11-0.59); MONO% 9.4 % (1.7-9.3); MPV 11.2 FL (7.4-10.4); NEUT# 4.16 X1000 (1.4-6.5); NEUT% 71.1 % (42.2-75.2); PLT 111 X1000 (130-400); RBC 4.72 XMIL (4.2-5.4); WBC 5.85 X1000 (4.8-10.8)
[2019-01-18 07:51] LABS: AGAP 10; BUN 12 mg/dL (8-22); CALCIUM 9.4 mg/dL (8.8-10.2); CHLORIDE 101 mmol/L (98-107); COSMO 280; CREATININE 0.7 mg/dL (0.5-0.9); ESTIMATED GFR > 60; GLUCOSE 110 mg/dL (70-104); MAGNESIUM 1.6 mg/dL (1.5-2.7); POTASSIUM 4.7 mmol/L (3.5-5.1); SODIUM 140 mmol/L (136-145); TCO2 29 mmol/L (25-35)
[2019-01-18] MEDS: CYMBALTA PO SCH (08:49)
[2019-01-18] MEDS: ELIQUIS PO SCH (08:50)
[2019-01-18] MEDS: LANOXIN PO SCH (08:50)
[2019-01-18] MEDS: LOPRESSOR PO SCH (08:50)
[2019-01-18] MEDS: SINGULAIR PO SCH (08:50)
[2019-01-18] MEDS: VITAMIN D PO SCH (08:50)
[2019-01-18] MEDS: DITROPAN PO SCH (08:50)
[2019-01-18] MEDS: MAGNESIUM SULFATE 2 GM/S.W.I. 2 GM/50 ML IVPB IV SCH ×2 (10:47→14:15)
[2019-01-18] MEDS ORDERED: LOPRESSOR PO ONE (11:00)
--- NOTE | 2019-01-18 12:19 | PROGRESS NOTE ---
DATE: 01/18/2019 INTERVAL HISTORY: No acute events overnight. She continues to have intermittent episodes of tachycardia with a heart rate in the 80 to 120 range, which is evident on bedside monitor as well. She has been tolerating diet well without any discomfort, nausea, or vomiting. Family is at bedside. The patient does not appear in any acute distress. VITALS: Temperature of 98.8 degrees, pulse 81, respiratory rate of 17, blood pressure 140/90, saturating 97% on room air. PHYSICAL EXAMINATION: General: Does not appear in any acute distress. She has multiple fillings of her teeth and not so good oral hygiene. Lungs: Air entry bilaterally equal. No wheeze, rhonchi, crackles. Cardiovascular: S1, S2 normal. Irregularly irregular. Intermittently tachycardic. No murmur, rub, or gallop. Abdomen: Soft, nontender. Active bowel sounds. No guarding or rigidity. No lower extremity edema. She is alert. She remembers her name, date of , and she is following all commands. LABS: Suggestive of no leukocytosis, normal hemoglobin, stable platelet count, normal electrolytes, hypomagnesemia is being repleted. MICROBIOLOGY: Blood culture noted. IMAGING: No new imaging. ASSESSMENT AND PLAN: 1. Atrial fibrillation with rapid ventricular rate and left atrial thrombus. Increase metoprolol dose. Continue digoxin and Eliquis as per cardiology recommendation. I will appreciate further management including further increasing metoprolol dose, considering her intermittent tachycardia. 2. 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 Cardiology team had an extensive discussion about oral hygiene, risk of endocarditis. She will need outpatient followup for further discussion about mitral valve replacement in the future. 3. Cholecystolithiasis with chronic cholecystitis. She, in fact, was in the hospital for elective cholecystectomy where preoperatively, she was found to have atrial fibrillation which prompted this admission. Currently, she is tolerating diet well. Surgery team has deferred cholecystectomy considering her cardiac issues. She should have outpatient followup with general surgery team to see if she would need cholecystectomy in the future. 4. 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 5. Disposition. I am awaiting cardiology recommendation about further heart rate monitoring. I have increased her metoprolol dose. If her heart rate is controlled and cardiology okays, my plan will be to discharge her later during the day. Plan of care discussed with the patient and her mother at bedside. All of their questions have been answered. cc: Cesar Purcell MD
[2019-01-18] MEDS ORDERED: LOTRIMIN 1% CREAM TOP ONE (14:10)
--- NOTE | 2019-01-18 15:07 | CARDIOLOGY PROGRESS NOTE ---
DATE: 01/18/2019 SUBJECTIVE: Patient denies chest discomfort or dyspnea on room air. She reports feeling fine. OBJECTIVE: Vital Signs: Blood pressure 111/75, heart rate 80-110 and irregular with ECG monitor showing atrial fibrillation. Neck: There is no significant jugular venous distention. Chest: Clear to auscultation. Cardiac: Exam reveals an irregular rate and rhythm without appreciable murmur, rub, or gallop. There is no evidence of peripheral edema. LABORATORY DATA: Includes a white blood cell count of 5.5, hematocrit 42.2 hemoglobin 13.6, platelet count 111. Sodium 140, potassium 4.7, chloride 101, carbon dioxide 29, BUN 12, creatinine 0.7, glucose 110. Digoxin level 1.4. IMPRESSION: 1. Atrial fibrillation. Heart rate mildly elevated this morning despite current regimen. Metoprolol dose increased. 2. Left atrial appendage thrombus. 3. 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 4. Cholelithiasis. 5. Developmental delay/mentally challenged. Patient reportedly has Ruiz syndrome. RECOMMENDATIONS: 1. Agree with gentle increase in metoprolol dose. 2. Continue digoxin 0.125 mg p.o. daily. 3. Continue Eliquis for anticoagulation. 4. Reasonable for patient to be discharged soon. cc: MD Cesar Krishnamurthy MD
[2019-01-18 16:06] VITALS: BP 125/76
--- NOTE | 2019-01-18 16:52 | GENERAL SURGERY PROGRESS NOTE ---
DATE: 01/18/2019 SUBJECTIVE: Overall clinically doing okay. She is on anticoagulation for her left atrial thrombus. No fevers. No tachycardia. OBJECTIVE: Vital signs: Blood pressure 111/75, oxygen saturation 96%. General: She is alert. Integument: Warm, dry, without jaundice. Abdomen: Soft, nontender, nondistended. LABORATORY: White count 5, hematocrit 42. Creatinine 0.7. ASSESSMENT AND PLAN: This is a 38-year-old female admitted for elective cholecystectomy and found to be in atrial fibrillation with rapid ventricular response and subsequently was found to have a left atrial thrombus. Cardiology and hospitalist service are managing. From a gallbladder standpoint, she is tolerating a diet. She is ambulating, with a normal white count. We can follow her as an outpatient but recommendation has been made that we will allow some time for evolution of a thrombus prior to cholecystectomy. I agree with this. We will see her back in the office in 2 weeks to follow her as an outpatient. cc: MD Cesar Quiñonez MD
[2019-01-18] MEDS ORDERED: LOPRESSOR PO SCH (21:00)
--- NOTE | 2019-01-18 21:50 | DISCHARGE SUMMARY ---
ADMISSION DATE: 01/13/2019 DISCHARGE DATE: 01/18/2019 DISCHARGE DISPOSITION: Home with family. DISCHARGE CONDITION: Hemodynamically stable. Her heart rate is well controlled on higher dose of metoprolol. She is denying any nausea, vomiting, tolerating heart healthy diet very well. Family is at bedside. DISCHARGE DIAGNOSES: 1. Atrial fibrillation with rapid ventricular rate. 2. Acute hypoxic respiratory failure due to acute pulmonary edema due to atrial fibrillation with rapid ventricular rate. 3. 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 4. Cholecystolithiasis with likely chronic cholecystitis. 5. Intermittent wheezing thought to be related to gastric reflux. OTHER DIAGNOSES: 1. History of mental retardation. 2. History of Ruiz's syndrome. 3. History of arthritis and chronic pain. 4. History of small wounds over the legs on hormone replacement therapy due to total hysterectomy. 5. History of seasonal allergies. 6. History of dental surgery including wisdom and other teeth extractions. CONSULTATIONS DURING HOSPITALIZATION: General Surgery, Dr. Mckinley. Cardiology, Dr. Durant. PROCEDURES DURING HOSPITAL ADMISSION: Transesophageal echocardiogram which had suggested large left atrial thrombus. DISCHARGE MEDICATIONS: 1. Aspirin 81 mg daily. She was advised to discuss with the regular doctor about stopping this since ultrasound lower extremity did not detect peripheral artery disease. 2. Duloxetine 60 mg daily. 3. Oxybutynin 5 mg daily. 4. Omeprazole 40 mg daily. 5. Montelukast 10 mg daily. 6. Vitamin D3 2000 units daily. 7. Ondansetron 2 tablets every 4 hours 4 mg each as needed for nausea, vomiting, 8. Famotidine 20 mg at nighttime. 9. Apixaban 5 mg b.i.d. 10. Digoxin 125 mcg daily. 11. Metoprolol 75 mg b.i.d.. VITALS AT THE TIME OF DISCHARGE: Temperature 97.6 degrees, pulse 80, respiratory 20, blood pressure 110/75, saturating 96% on room air. PHYSICAL EXAMINATION: General: Does not appear in any acute distress. Oral cavity is moist. She has poor dental hygiene and multiple fillings of her teeth. Lungs: Air entry bilaterally equal. No wheeze or crackles. Cardiovascular: S1, S2 normal. Irregularly irregular. No murmur, rub, or gallop. Abdomen: Soft, nontender. Active bowel sounds. No lower extremity edema. She is eating without nausea, vomiting. SIGNIFICANT LABS AT THE TIME OF DISCHARGE: On admission WBC 5.8, hemoglobin 13.6, platelet of 111,000. BUN 12, creatinine 0.7, blood glucose 110. Magnesium is 1.6 which is repleted. Digoxin level is 1.4. Urine streptococcal and Legionella antigen are undetectable. Procalcitonin was undetectable. Significant micro during hospital admission blood culture did not have any growth. SIGNIFICANT IMAGING DURING THE HOSPITAL ADMISSION: Pulmonary arteriogram performed for elevated D- dimer had no pulmonary emboli. Cardiomegaly with pulmonary edema and pleural effusions. She had bilateral infiltrates suggestive of pulmonary edema. Transthoracic echocardiogram had abnormal mitral valve with restricted mitral leaflet separation, thickening of posterior mitral leaflet with reduced posterior mitral mobility, mild doming of anterior mitral leaflet and moderate to severe mitral stenosis. She had left ventricular ejection fraction of 45%. Extremity venous studies did not detect any evidence of DVT in bilateral lower extremities which was performed for bilateral leg swelling. Extremity arterial study was reasonably normal study. HOSPITAL COURSE SUMMARY: Ms. Luis is a 38 years old lady with past history of mental retardation, Ruiz syndrome, who lives with her mother and is pretty much dependent for activities of daily living, who came to this hospital for elective cholecystectomy for her symptoms of intermittent post prandial abdominal pain and nausea. However, in preoperative evaluation she was found to have a heart rate in 140s and was detected to have atrial fibrillation, so her cholecystectomy was postponed and she was admitted under hospitalist service for further management. When we evaluated, the patient was also noted to be short of breath and was needing oxygen so she was given intravenous Lasix and was admitted for further management. Her hypoxia and acute respiratory failure was thought to be due to pulmonary edema, which improved with Lasix. For atrial fibrillation, she was initially on diltiazem drip and she did not convert to oral sotalol, so she underwent transesophageal echocardiogram, but before she could be shocked, she was found to have large left atrial thrombus, so the procedure was aborted and it was decided to just controlled her rate and anticoagulate her. Currently, her heart rate is well controlled on metoprolol digoxin, and she will be discharged on Eliquis. During hospital admission, she was tolerating diet well without any recurrence of cholecystolithiasis symptoms, so it was decided not to perform cholecystectomy and she should have outpatient surgery evaluation. On admission, she was also found to have small wounds on her shins of bilateral tibia and the patient's mother told that she was previously told that she had peripheral artery disease for which she was on aspirin. However, ultrasound, lower extremity venous and arterial imaging was unremarkable. At the time of discharge, she was advised to follow up with her regular doctor and discuss about stopping aspirin. TIME SPENT: More than 30 minutes were spent in discharging this patient. Plan of care in detail was explained to patient's mother. Thank you. cc: Cesar Purcell MD
== END 2019-01-18 17:26 | disposition home or self-care (01) | DRG 308 ==
LOC: 2N 11:24 → OR 11:24 → OBSVTOIN 14:53 → SUATTDRO 14:53
PROVIDERS: ADMIT Internal Medicine; ATTEND Internal Medicine
PROC: MS.CXOR (2019-01-13 13:00)

== ENCOUNTER 2019-04-23 06:48 | Day surgery (SDC) ==
[2019-04-24 12:16] VITALS: BP 99/66
== END 2019-04-24 12:59 | disposition home or self-care (01) ==
LOC: 4N 06:48 → OR 06:48
PROVIDERS: ATTEND Surgery